=== PATIENT | female | born 1980 | race Caucasian/White ===

== ENCOUNTER 2024-04-14 20:28 | Emergency (ER) | payer OTHER ==
[2024-04-14 20:45] VITALS: BP 110/64; PULSE 105; RESP 16; TEMP 99.3; BMI 22.2
[2024-04-14 21:24] LABS: HEMATOCRIT 36.7 % (32.4-45.2); HEMOGLOBIN 12.2 G/dL (10.7-15.3); MCH 28.9 pg (25.7-33.7); MCHC 33.4 g/dl (32.0-36.0); MEAN CELL VOLUME 86.8 fl (80-96); MEAN PLT VOLUME 8.6 fl (7.5-11.1); PLATELET COUNT 189.8 10^3/uL (134-434); RBC 4.23 10^6/uL (3.60-5.2); RDW 13.8 % (11.6-15.6); WHITE BLOOD COUNT 7.8 10^3/uL (4.0-10.8)
[2024-04-14 21:55] LABS: ALBUMIN 4.2 g/dl (3.4-5.0); ALK PHOS 39 U/L (45-117); ANION GAP 8 mmol/L (4-13); BILIRUBIN,TOTAL 0.5 mg/dl (0.2-1); CALCIUM 9.3 mg/dl (8.5-10.1); CHLORIDE 100 mmol/L (98-107); CO2 29 mmol/L (21-32); CREATININE 0.6 mg/dl (0.6-1.3); GLUCOSE,RANDOM 103 mg/dl (74-106); POTASSIUM 3.7 mmol/L (3.5-5.1); SGOT/AST 21 U/L (15-37); SGPT/ALT 22 U/L (7-52); SODIUM 137 mmol/L (136-145); TOT PROT 6.9 g/dl (6.4-8.2)
[2024-04-14] MEDS ORDERED: KETOROLAC TROMETHAMINE 30 MG/1 ML VIAL ONE (22:06)
[2024-04-14] MEDS: KETOROLAC TROMETHAMINE 30 MG/1 ML VIAL IVPUSH ONE (22:12)
[2024-04-14] MEDS ORDERED: DEXAMETHASONE SOD PHOSPHATE 10 MG/1 ML VIAL ONE (23:31)
[2024-04-14] MEDS: DEXAMETHASONE SOD PHOSPHATE 10 MG/1 ML VIAL IVPUSH ONE (23:40)
== END 2024-04-14 23:41 | disposition home or self-care (01) ==
LOC: FER 20:28
PROC: 3E033GC Introduction of Other Therapeutic Substance into Peripheral Vein, Percutaneous Approach (ICD-10-PCS; principal; 2024-04-14)
PROC: 3E0333Z Introduction of Anti-inflammatory into Peripheral Vein, Percutaneous Approach (ICD-10-PCS; 2024-04-14)
DX: M94.0 Chondrocostal junction syndrome [Tietze] (principal); R10.13 Epigastric pain; R07.9 Chest pain, unspecified
CPT/HCPCS: 36415; 71046-TC-FY; 80053; 83690; 84484; 85027; 85379; 93005; 99285-25; J1100